=== PATIENT | female | born 1990 | race Caucasian/White ===

== ENCOUNTER 2022-01-31 12:10 | Emergency (ER) | payer MEDICAID, OTHER ==
[~2022-01-31] VITALS: Ht 160 cm; Wt 83.6 kg
[~2022-01-31 12:10] MED LIST: PREN-64 PO
[2022-01-31 12:20] VITALS: BP 131/91
[2022-01-31 13:10] LABS: COVID AG,FIA SOURCE NASOPHARYNGEAL
[2022-01-31 13:48] LABS: INFLUENZA TYPE A NEGATIVE FOR TYPE A (NEGATIVE); INFLUENZA TYPE B NEGATIVE FOR TYPE B (NEGATIVE)
[2022-01-31] MEDS ORDERED: GUAIFDM PO (14:12)
[2022-01-31] MEDS ORDERED: ACET-2080 PO (14:12)
[2022-01-31] MEDS ORDERED: IBUP-1554 PO (14:12)
== END 2022-01-31 14:26 | disposition home or self-care (01) ==
LOC: EMS 12:10
DX: J06.9 Acute upper respiratory infection, unspecified (principal); Z20.822 Contact with and (suspected) exposure to COVID-19; R07.89 Other chest pain; F10.20 Alcohol dependence, uncomplicated; R09.89 Other specified symptoms and signs involving the circulatory and respiratory systems
CPT/HCPCS: 87804; 99283

== ENCOUNTER 2022-02-04 16:18 | Emergency (ER) | payer MEDICAID, OTHER ==
[~2022-02-04] VITALS: Ht 160 cm; Wt 83.6 kg
[~2022-02-04 16:18] MED LIST changes: +ACET-2080 PO; +GUAIFDM PO; +IBUP-1554 PO; -PREN-64 PO
[2022-02-04] MEDS ORDERED: SERT-162 PO (16:58)
[2022-02-04] MEDS ORDERED: HYDR-3831 PO (16:58)
[2022-02-04 23:35] VITALS: BP 135/84
== END 2022-02-04 23:50 | disposition home or self-care (01) ==
LOC: EMS 16:22
DX: R07.89 Other chest pain (principal); M54.9 Dorsalgia, unspecified; F41.9 Anxiety disorder, unspecified; F32.A Depression, unspecified; Z98.890 Other specified postprocedural states
CPT/HCPCS: 71045; 87420; 93005; 99285